=== PATIENT | female | born 1980 | race Caucasian/White ===

== ENCOUNTER 2025-01-03 19:13 | Emergency (ER) | payer BC, SELFPAY ==
[2025-01-03 19:21] VITALS: BP 107/58; PULSE 81; RESP 16; TEMP 36.6; O2SAT 99; BMI 26.3
--- OUTSIDE RECORDS SUMMARY | 2025-01-03 19:34 | XMS_ITS | Clinical Summary ---
Author Organization [facility] Address [address] [place] [address] Care Team Providers Care Dental Laboratory Technician Name Role Phone Unavailable Primary Care Provider Unavailabl e Allergies Active Allergy Reactions Criticality Noted Date Comments Penicillins Swelling,Rash High 05/26/2021 Active Problems Problem Noted Date Diagnosed Date Sebaceous cyst 05/26/2021 Family History Medical History Relation Name Comments Liver cancer Maternal Grandmother Fibromyalgia Mother Liver cancer Mother Relation Name Status Comments Maternal Grandmother Mother Social History Tobacco Use Types Packs/Day Years Used Date Smoking Tobacco: Every Day Smokeless Tobacco: Never Alcohol Use Standard Drinks/Week Comments Yes 0 (1 standard drink = 0.6 oz pur e alcohol) occasionally Comments Unknown Sex and Gender Information Value Date Recorded Sex Assigned at Not on file Legal Sex Female 6:18 PM EDT Gender Identity Not on file Sexual Orientation Not on file Last Filed Vital Signs Vital Sign Reading Time Taken Comments Blood Pressure 93/59 05/26/2021 1:53 PM EST Pulse 95 05/26/2021 1:53 PM EST Temperature 36.8 C (98.2 F) 05/26/2021 1:53 PM EST Respiratory Rate 16 06/25/2017 3:23 PM EST Oxygen Saturation - - Inhaled Oxygen Concentration - - Weight 68.3 kg (150 lb 9.6 oz) 05/26/2021 1:53 P M EST Height 167.6 cm (5' 6 ) 05/26/2021 1:53 PM EST Body Mass Index 24.31 05/26/2021 1:53 PM EST Plan of Treatment Health Maintenance Due Date Last Done Comments [facility]-Depression Screening 1982 [facility]-/Child/Adol SDOH Screenings 1982 [facility]Y-Varicella Vaccines (1 of 2 - 13+ 2-dose series) 12/04/1995 UKY- SDOH Screenings 2000 UKY-Adult SDOH Screenings 2000 UKY-DTaP,Tdap,and Td Vaccines (1 - Tdap) 2001 UKY-Hepatitis B Vaccines (1 of 3 - 19+ 3-dose series) 2001 UKY-Pap Smear 12/04/2003 HPV Vaccines (1 - 3-dose SCDM series) 2009 [facility]Y-Cervical Cancer Screening 2012 UKY-HPV/Cotest 2012 [id number]-OKLTA-01 Vaccine (3 - season) 2024 12/21/2020, 11/04/2020 UKY-Influenza Vaccine (#1) 12/29/202401/22, 02/15/2016, 03/02/2015 UKY-Zoster Vaccines (1 of 2) 2032 UKY-HIB Vaccines Aged Out No longer e ligible based on patient's age to complete this topic UKY-Hepatitis A Vaccines Aged Out No longer eligible based on patient's age to complete this topic UKY-IPV Vaccines Aged Out No longer e ligible based on patient's age to complete this topic UKY-Pneumococcal Vaccine: Pediatrics (0 to 5 Years) and At-Risk Patients (6 to 49 Years) Aged Out No longer eligible b ased on patient's age to complete this topic UKY-Rotavirus Vaccines Aged Out No lo nger eligible based on patient's age to complete this topic Insurance [facility] PASSPORT MEDICAID [place]
--- OUTSIDE RECORDS SUMMARY | 2025-01-03 19:34 | XMS_ITS | Clinical Summary ---
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 06/13/2019 Active Probiotic Product (ALIGN) 4 MG capsule Take by mouth. Active Multiple Vitamin (MULTIVITAMIN) capsule Take 1 capsule by mouth 1 (one) time each day. Active calcium carbonate-vitam in D (OSCAL-500) 500-200 MG-UNIT per tablet Take 1 tablet by mouth 1 (one) time each day. Active peppermint oil liquid if needed. Active busPIRone (BUSPAR) 15 MG tablet 05/13/2020 Active Vraylar 6 MG capsule Take 1 capsule by mouth 1 (one) time each day. 06/11/2021 Active lamoTRIgine ER 300 MG tablet sustained-relea se 24 hour Take 1 tablet by mouth 1 (one) time each day. 06/22/2021 Active oxaprozin (DAYPRO) 600 MG tablet TAKE 2 TABLETS BY MOUTH ONCE DAILY DIRECTED 06/23/2021 Active hydrOXYzine (VISTARIL) 50 MG capsule TAKE 1 CAPSULE BY MOUTH UP TO 4 TIMES DAILY NEEDED 06/23/2021 Active etodolac (LODINE) 400 MG tablet Take 400 mg by mouth 2 (two) times a day with meals. 06/19/2021 Active Active Problems No known active problems Social History Tobacco Use Types Packs/Day Years Used Date Smoking Tobacco: Every Day Cigarettes Smokeless Tobacco: Never Intimate Partner Violence Answer Date R ecorded Insults You Not on file 07/05/2021 Threatens You Not on file 07/05/2021 Screams at You Not on file 07/05/2021 Physically Hurt Not on file 07/05/2021 Intimate Partner Violence Score Not on file 07/05/2021 Stress Answer Date Recorded Stress in your Life Not on file 03/05/2024 Dealing with Stress 3 03/05/2024 Comments Unknown Sex and Gender Information Value Date Recorded Sex Assigned at Not on file 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 [employer] Gender Identity Not on file Sexual Orientation Not on file Last Filed Vital Signs Vital Sign Reading Time Taken Comments Blood Pressure 128/76 07/04/2021 7:00 PM EST Pulse 84 07/04/2021 7:00 PM EST Temperature 36.9 C (98.5 F) 2019 10:08 PM EDT Respiratory Rate 20 07/04/2021 7:00 PM EST Oxygen Saturation 98% 07/04/2021 7:00 PM EST Inhaled Oxygen Concentration - - Weight - - Height - - Body Mass Index - - Plan of Treatment Health Maintenance Due Date Last Done Comments Cervical Cancer Screening Combo 1982 Dental Cleaning/Exam 1982 HIV Screening 1982 HPV / Cotest 1982 Hepatitis C Screening 1982 Pap Testing 1982 Asthma Spirometry 12/04/1987 HPV Immunization (1 - 2-dose series) 1993 Annual Preventive Exam 2000 Hep B Infection Screening - Triple Screen 2000 Hepatitis B Immunization (1 of 3 - 19+ 3-dose series) 2001 Pneumococcal: Ped (0 to 5 Yr s) and At-Risk Member (6 to 64 Yrs) (1 of 2 - PCV) 2001 Tetanus Diphtheria and Pertu ssis Immunization (1 - Tdap) 2001 Breast Cancer Screening 2012 Covid-19 Immunization (1 - 2 024-25 season) 2024 Influenza Immunization (#1) 2024 HIB Immunization Aged Out No longer e ligible based on patient's age to complete this topic Hepatitis A Immunization Aged Out No longer eligible based on patient's age to complete this topic Polio Immunization Aged Out No longer eligible based on patient's age to complete this topic Varicella Immunization Aged Out No lo nger eligible based on patient's age to complete this topic
--- NOTE | 2025-01-03 19:44 | XR_ITS ---
PROCEDURE INFORMATION: Exam: XR Left Wrist Exam date and time: 01/03/2025 7:38 PM Age: 44 years old Clinical indication: Pain; Swelling; Wrist; Bilateral; Additional info: Wrist pain TECHNIQUE: Imaging protocol: Radiologic exam of the left wrist. Views: 3 or more views. COMPARISON: No relevant prior studies available. FINDINGS: Bones/joints: Normal. No acute fracture identified. Soft tissues: Normal. IMPRESSION: No acute findings.
--- NOTE | 2025-01-03 19:57 | HMH.EDGENADL ---
Discharge Plan Disposition Patient Disposition: Home, Self-Care Referrals Follow up/Referrals: Dashawn Silver MD [Primary Care Provider, Medical] - See instructions Activity Restrictions/Add. Instructions Additional Instructions/Restrictions: Ice, elevate, use ibuprofen and Tylenol for pain and swelling. Clinical Impressions Clinical Impression: Left wrist sprain Instructions Patient Instructions: DI for Wrist Sprain, DI for Acute Pain -- Adult Print Language Print Language: Urdu Discharge ED Provider: Leonel Montague JR General Adult HPI <Apurva Madera (ED), COMPUTERIZED MILL MILL RECORDER - Last Filed: 01/03/25 21:57> General Chief complaint: PAIN Stated complaint: AO 9-6 left wrist painful and swollen Time Seen by Provider: 01/03/25 19:44 Mode of Arrival: Ambulatory Source of Information: Patient Description of Symptoms (Recalled from ER Triage Doc. by RN): Pt presents to ED for L wrist injury after a fall. Pt states she fell going up the stairs on a patio. Pt states this happened approx minutes ago. Pt has a knot on L wrist that she states was not there prior. Pt is A&O*4 and rates pain 5/10. History of Present Illness HPI narrative: 44-year-old female presents to the ED today for complaint of a fall on her porch. She was going up the stairs and fell back. She has a knot on her left wrist that is painful. Patient denies any loss of consciousness. She did not hit her head. She denies pain anywhere other than her left wrist. PFSH <Apurva Madera (ED), COMPUTERIZED MILL MILL RECORDER - Last Filed: 01/03/25 21:57> [facility]LY [facility] Disclaimer: The information contained in this section may have been updated after the patient was seen, as this information can be updated by other users. Social History (Updated 01/03/25 @ 21:57 by Apurva Madera (ED), COMPUTERIZED MILL MILL RECORDER) Smoking Status: Unknown if ever smoked alcohol intake: former current occupational status: other Travel in the last 8 weeks?: None Have you lived/traveled outside US in past 30 days?: No Contact w/someone who lives/traveled outside US past 30 days?: No Exposure to someone with infectious disease in past 14 days?: No Do you have a fever (greater than 100.4 F or 38 C)?: No Have you tested positive for COVID-19?: No Exposed to someone with COVID-19 in past 14 days?: No Do you have a sore throat?: No Do you have a cough?: No Do you have any weakness?: No Do you have any diarrhea?: No Are you experiencing any unusual bleeding?: No Do you have any muscle aches/pain?: No Do you have any abdominal pain?: No Are you experiencing loss of taste or smell?: No <Apurva Madera (ED), COMPUTERIZED MILL MILL RECORDER - Last Filed: 01/03/25 21:57> ROS Obtained: Yes Systems reviewed as appropriate & no additional complaints except as documented Constitutional Constitutional: Reports as per HPI Physical Exam <Apurva Madera (ED), COMPUTERIZED MILL MILL RECORDER - Last Filed: 01/03/25 21:57> General General appearance: alert and in no apparent distress Head Head exam: normocephalic Eye Eye exam: Present PERRL and EOMI ENT ENT exam: Present normal oropharynx and mucous membranes moist Neck Neck exam: Present full ROM and trachea midline Respiratory Respiratory exam: Present normal lung sounds bilaterally Cardiovascular Cardiovascular exam: Present regular rate, normal rhythm, normal heart sounds, +S1 and +S2 Extremities Exam Extremities exam: Present tenderness, normal capillary refill and edema Neurological Exam Neurological exam: Present alert and oriented X3 Skin Skin exam: Present warm, dry and intact Medical Decision Making <Apurva Madera (ED), COMPUTERIZED MILL MILL RECORDER - Last Filed: 01/03/25 21:57> Medical Records Screening: Per USPSTF and CDC recommendations, given the prevalence of disease in our region, it is our hospital?s policy to screen for HIV and viral Hepatitis for all patients aged 18 and over and those with ongoing risk factors. Mehran Inquiry Pt receiving controlled substance: No Mehran was queried for this patient: No Vital Signs: 01/03/25 19:21 01/03/25 22:04 Temperature 97.9 F 98.3 F Temperature Source Oral Oral Pulse Rate 70 Pulse Rate [Left] 81 Respiratory Rate 16 18 Blood Pressure 111/72 Blood Pressure [Right Arm] 107/58 L Blood Pressure Mean [Right Arm] 74 02 Sat by Pulse Oximetry 99 Oxygen Delivery Method Room Air Room Air Orders (Tests/Meds): ORDERS Category Date Time Status Wrist XR left minimum 3 views [XR wrist LT min 3V] Stat Exams 01/03/25 19:44 Completed Medical Decision Narrative: patient is a 44-year-old female presenting to the emergency department for evaluation of left wrist pain after a fall. Patient is hemodynamically stable and nontoxic-appearing upon arrival, afebrile. Differential diagnosis includes fracture versus sprain or strain. Workup will be conducted with specific imaging. X-ray showed no acute finding. Patient will do Arnold wrap, Tylenol and ibuprofen for pain. She will follow-up with PCP. Patient safe for discharge home. <Leonel Montague JR, DO - Last Filed: 01/04/25 00:23> Vital Signs: 01/03/25 19:21 01/03/25 22:04 Temperature 97.9 F 98.3 F Temperature Source Oral Oral Pulse Rate 70 Pulse Rate [Left] 81 Respiratory Rate 16 18 Blood Pressure 111/72 Blood Pressure [Right Arm] 107/58 L Blood Pressure Mean [Right Arm] 74 02 Sat by Pulse Oximetry 99 Oxygen Delivery Method Room Air Room Air Orders (Tests/Meds): ORDERS Category Date Time Status Wrist XR left minimum 3 views [XR wrist LT min 3V] Stat Exams 01/03/25 19:44 Completed Medical Decision Narrative: patient is a 44-year-old female presenting to the emergency department for evaluation of left wrist pain after a fall. Patient is hemodynamically stable and nontoxic-appearing upon arrival, afebrile. Differential diagnosis includes fracture versus sprain or strain. Workup will be conducted with specific imaging. X-ray showed no acute finding. Patient will do Arnold wrap, Tylenol and ibuprofen for pain. She will follow-up with PCP. Patient safe for discharge home. I was consulted by the GEORGETTE, and we discussed the complexity of problems being addressed. I approve the treatment and management plan for this patient's care in the Emergency Department, thus performing a substantial portion of the medical decision making Critical Care <Apurva Madera (TEZ), COMPUTERIZED MILL MILL RECORDER - Last Filed: 01/03/25 21:57> Critical Care Time Critical Care Time: No
[2025-01-03 22:04] VITALS: BP 111/72; PULSE 70; RESP 18; TEMP 36.8; O2SAT 96
== END 2025-01-03 22:06 | disposition home or self-care (01) ==
PROVIDERS: Emergency Provider Student in an Organized Health Care Education/Training Program; PCP Family Medicine
DX: S63.502A Unspecified sprain of left wrist, initial encounter (principal)
CPT/HCPCS: 73110; 99282; 99283

== ENCOUNTER 2025-01-27 11:01 | Outpatient (CLI) | payer BC, SELFPAY ==
--- NOTE | 2025-01-27 11:08 | XR_ITS ---
FINAL REPORT CLINICAL HISTORY: low back pain NO SUGERY NO PRIOR COMPARISON: None FINDINGS: 3 views of the lumbar spine were obtained. There is no acute fracture. There is no malalignment. The vertebrae are normal in height. The disc spaces are preserved. IMPRESSION: No acute process. Reviewed, Interpreted and Dictated by Mukund Zapata MD Transcribed by Livia Heaton Authenticated and [facility]
--- OUTSIDE RECORDS SUMMARY | 2025-01-27 11:09 | XMS_ITS | Clinical Summary ---
Author Organization [facility] Address [address] [place] [address] Care Team Providers Care Jewelry Casting Model Maker Name Role Phone Unavailable Primary Care Provider [...] 2009 [facility]-Cervical Cancer Screening 2012 [facility]Y-HPV/Cotest 2012 [id number] Vaccine (3 - season) 2024 12/21/2020, 11/04/2020 [...] patient's age to complete this topic Insurance [facility], [facility] PASSPORT MEDICAID [place]
--- OUTSIDE RECORDS SUMMARY | 2025-01-27 11:09 | XMS_ITS | Clinical Summary ---
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
== END 2025-01-27 23:59 | disposition home or self-care (01) ==
LOC: RAD 11:03
PROVIDERS: PCP Family Medicine; Visit Provider Student in an Organized Health Care Education/Training Program
DX: M54.50 Low back pain, unspecified (principal)
CPT/HCPCS: 72100

== ENCOUNTER 2025-02-02 14:08 | Emergency (ER) | payer BC, SELFPAY ==
[2025-02-02 14:13] VITALS: BP 131/93; PULSE 94; RESP 15; TEMP 36.4; O2SAT 100; BMI 26.3
[2025-02-02 14:27] LABS: Coronavirus 19, PCR Not Detected (NotDetected); Influenza A, PCR Not Detected (NotDetected); Influenza B, PCR Not Detected (NotDetected)
--- OUTSIDE RECORDS SUMMARY | 2025-02-02 14:34 | XMS_ITS | Clinical Summary ---
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
--- OUTSIDE RECORDS SUMMARY | 2025-02-02 14:34 | XMS_ITS | Clinical Summary ---
Author Organization [facility] Address [address] [place] [address] Care Team Providers Care Lathe Machinist Name Role Phone Unavailable Primary Care Provider [...] 2009 [facility]Y-Cervical Cancer Screening 2012 [facility]Y-HPV/Cotest 2012 [id number] Vaccine (3 - season) 2024 12/21/2020, 11/04/2020 [...] patient's age to complete this topic Insurance [facility] PASSPORT MEDICAID [place]
[2025-02-02 14:39] VITALS: O2SAT 100
--- NOTE | 2025-02-02 14:47 | XR_ITS ---
FINAL REPORT TECHNIQUE: Single view chest CLINICAL HISTORY: short of breath FINDINGS: A single view of the chest was obtained. The heart and mediastinum are within normal limits. The lungs are clear. There is no pneumothorax. IMPRESSION: No acute cardiopulmonary process. Reviewed, Interpreted and Dictated by Stephanie Melchor MD Transcribed by Cara Gutierrez Authenticated and [facility]
--- NOTE | 2025-02-02 14:50 | ED_ITS ---
<Statement entered by Bruce Davies DO - 02/03/25 07:33> I was consulted by the GEORGETTE, and we discussed the complexity of problems being addressed. I approved the treatment and management plan for this patient's care in the emergency department, thus performing a substantive portion of the medical decision making. Bruce Davies DO <Statement entered by Bart Calderón MD - 02/02/25 17:38> I was consulted by the GEORGETTE, and we discussed the complexity of the problems being addressed. I approve the treatment and management plan for this patient's care in the emergency department, thus performing a substantive portion of the medical decision making. Bart Calderón MD Discharge Plan Disposition Chief Complaint: Weakness Prescriptions Prescriptions: No Action cyclobenzaprine 5 mg tablet 5 mg PO TID PRN (Reason: muscle spasm) Qty: 14 0RF methylprednisolone 4 mg tablets,dose pack See Rx Instructions PO PER PKG DIR Qty: 21 0RF Rx Instructions: PO PER PKG DIR Referrals Follow up/Referrals: Dashawn Silver MD [Primary Care Provider, Medical] - See instructions Print Language Print Language: Arabic Discharge ED Provider: Bruce Davies General Adult HPI <Apurva Madera (ED), GAUGE MAKER APPRENTICE - Last Filed: 02/02/25 17:31> General Chief complaint: Weakness Stated complaint: Body Aches & Dizziness Time Seen by Provider: 02/02/25 14:32 Mode of Arrival: Ambulatory Source of Information: Patient Description of Symptoms (Recalled from ER Triage Doc. by RN): tracy presents to the ED for dizziness, having no energy and body aches. itzel stated this all started this morning. History of Present Illness HPI narrative: 44-year-old female presents to the ED today for body aches, low energy, no appetite, flu like symptoms, chest pain and no appetite. Patient says she has been sweating and having chills but does not know if she has a fever or not. She says she is going through a divorce and just is depressed. She has not had her Seroquel or her Zoloft for the last 2 days. She has no other symptoms at this time. Related Data Previous Rx's ?Medication ?Instructions ?Recorded cyclobenzaprine 5 mg tablet 5 mg PO TID PRN muscle spa sm #14 01/22/25 tabs methylprednisolone 4 mg tablets in See Rx Instructions PO PER PKG DIR 01/22/25 a dose pack #21 tabs Allergies Allergy/AdvReac Type Severity Reaction Status Date / Time Penicillins Allergy Severe Hives Verified 01/22/25 16:15 PFSH <Apurva Madera (ED), GAUGE MAKER APPRENTICE - Last Filed: 02/02/25 17:31> PFS Disclaimer: The information contained in this section may have been updated after the patient was seen, as this information can be updated by other users. Social History Smoking Status: Current every day smoker alcohol intake: former current occupational status: other Travel in the last 8 weeks?: None Have you lived/traveled outside US in past 30 days?: No Contact w/someone who lives/traveled outside US past 30 days?: No Exposure to someone with infectious disease in past 14 days?: No Do you have a fever (greater than 100.4 F or 38 C)?: No Have you tested positive for COVID-19?: No Exposed to someone with COVID-19 in past 14 days?: No Do you have a sore throat?: No Do you have a cough?: No Do you have any weakness?: No Do you have any diarrhea?: No Are you experiencing any unusual bleeding?: No Do you have any muscle aches/pain?: Yes Do you have any abdominal pain?: No Are you experiencing loss of taste or smell?: No <Apurva Madera (ED), GAUGE MAKER APPRENTICE - Last Filed: 02/02/25 17:31> ROS Obtained: Yes Systems reviewed as appropriate & no additional complaints except as documented Constitutional Constitutional: Reports as per HPI Physical Exam <Apurva Madera (ED), GAUGE MAKER APPRENTICE - Last Filed: 02/02/25 17:31> General General appearance: alert and anxious Head Head exam: normocephalic Eye Eye exam: Present PERRL and EOMI ENT ENT exam: Present normal oropharynx and mucous membranes moist Neck Neck exam: Present full ROM and trachea midline Respiratory Respiratory exam: Present normal lung sounds bilaterally Cardiovascular Cardiovascular exam: Present normal rhythm, normal heart sounds, +S1 and +S2 Extremities Exam Extremities exam: Present full ROM and normal capillary refill Neurological Exam Neurological exam: Present alert, oriented X3 and normal gait Skin Skin exam: Present warm, dry and intact Medical Decision Making <Apurva Madera (ED), GAUGE MAKER APPRENTICE - Last Filed: 02/02/25 17:31> Medical Records Screening: Per USPSTF and CDC recommendations, given the prevalence of disease in our region, it is our hospital?s policy to screen for HIV and viral Hepatitis for all patients aged 18 and over and those with ongoing risk factors. Mehran Inquiry Pt receiving controlled substance: No Mehran was queried for this patient: No Vital Signs: 02/02/25 14:13 02/02/25 14:39 Temperature 97.5 F L Temperature Source Oral Pulse Rate [Right Radial] 94 H Respiratory Rate 15 Blood Pressure [Right Arm] 131/93 H Blood Pressure Mean [Right Arm] 105 Blood Pressure Source [Right Arm] Automatic Cuff Blood Pressure Position [Right Arm] Sitting 02 Sat by Pulse Oximetry 100 100 Oxygen Delivery Method Room Air Room Air Lab Data Lab Results 02/02/25 14:20: SARS-CoV-2 (PCR) Not detected, Influenza A Untype (PCR) Not detected, Influenza Type B (PCR) Not detected 02/02/25 14:57: WBC 4.6 L, RBC 4.31, Hgb 11.8 L, Hct 34.2 L, MCV 79.4 L, MCH 27.4, MCHC 34.5, RDW 14.2, Plt Count 240, MPV 9.3, Neut % (Auto) 64.5, Lymph % (Auto) 26.3, Karnes % (Auto) 6.6, Eos % (Auto) 1.5, Baso % (Auto) 0.7, Neut # (Auto) 3.0, Lymph # (Auto) 1.2, Karnes # (Auto) 0.3, Eos # (Auto) 0.1, Baso # (Auto) 0.0, Sodium 137, Potassium 3.9, Chloride 105, Carbon Dioxide 23, Anion Gap 12.9, BUN 11, Creatinine 0.90, Estimated Creat Clear 95, Estimated GFR 69, Est GFR ( Amer) 83, Glucose 90, Calcium 8.7, Magnesium 1.9, Total Bilirubin 0.6, AST 40 H, ALT 30, Alkaline Phosphatase 88, Troponin I < 0.01, Total Protein 6.9, Albumin 4.0, Globulin 2.9, Albumin/Globulin Ratio 1.4, Lipase 43 02/02/25 14:57 02/02/25 14:57 Orders (Tests/Meds): ED MEDICATIONS Generic Name Dose Route Start Last Admin Trade Name Freq PRN Reason Stop Dose Admin Sodium Chloride 8 ml 02/02/25 14:47 Sodium Chloride 0.9% 10ml Vial IV 03/04/25 14:46 NEEDED PRN dilute pepcid Discontinued Medications Generic Name Dose Route Start Last Admin Trade Name Freq PRN Reason Stop Dose Admin Famotidine 20 mg 02/02/25 14:47 02/02/25 15:11 Famotidine 20mg/2ml Vial IV 02/02/25 14:48 20 mg ONCE ONE Administration Sodium Chloride 1,000 mls @ 999 mls/hr 02/02/25 14:47 02/02/25 16:25 Sod Chlor 0.9% 1000ml Bag IV 02/02/25 15:47 Infused .Q1H1M ONE Infusion ORDERS Category Date Time Status Chest XR -- portable [XR chest portable] Stat Exams 02/02/25 14:47 Completed CBC [Complete Blood Count Auto Diff] Stat Lab 02/02/25 14:57 Completed Comprehensive Metabolic Panel Stat Lab 02/02/25 14:57 Completed Lipase Stat Lab 02/02/25 14:57 Completed Magnesium Stat Lab 02/02/25 14:57 Completed Rapid PCR Covid and Flu A/B Stat Lab 02/02/25 14:20 Completed Trop I [Troponin I] Stat Lab 02/02/25 14:57 Completed Troponin I Q3H Lab 02/02/25 18:00 Ordered Troponin I Q3H Lab 02/02/25 21:00 Ordered Medical Decision Narrative: patient is a 44-year-old female presenting to the emergency department for evaluation of bodyaches, flulike symptoms, no appetite, chest pain that started this morning. Patient is hemodynamically stable and nontoxic-appearing upon arrival, afebrile. Differential diagnosis includes flu, COVID, symptoms from not taking her medicine, depression among others. Workup will be conducted with hematologic labs, specific imaging, provocative tests. Initial inventions include crystalloid bolus, analgesics. Initial workup reviewed by me hematologic labs are remarkable for white count 4.6, flu COVID-negative, other labs nonactionable at this time. Imaging showed nothing acute. I encouraged patient to take her medication that she has not been taking her Zoloft and her Seroquel. I believe that this is related. Patient to take a couple days off work, take her medicine and rest for couple days. Patient safe for discharge home <Bart Calderón MD - Last Filed: 02/02/25 15:48> Vital Signs: 02/02/25 14:13 02/02/25 14:39 Temperature 97.5 F L Temperature Source Oral Pulse Rate [Right Radial] 94 H Respiratory Rate 15 Blood Pressure [Right Arm] 131/93 H Blood Pressure Mean [Right Arm] 105 Blood Pressure Source [Right Arm] Automatic Cuff Blood Pressure Position [Right Arm] Sitting 02 Sat by Pulse Oximetry 100 100 Oxygen Delivery Method Room Air Room Air Lab Data Lab Results 02/02/25 14:20: SARS-CoV-2 (PCR) Not detected, Influenza A Untype (PCR) Not detected, Influenza Type B (PCR) Not detected 02/02/25 14:57: WBC 4.6 L, RBC 4.31, Hgb 11.8 L, Hct 34.2 L, MCV 79.4 L, MCH 27.4, MCHC 34.5, RDW 14.2, Plt Count 240, MPV 9.3, Neut % (Auto) 64.5, Lymph % (Auto) 26.3, Karnes % (Auto) 6.6, Eos % (Auto) 1.5, Baso % (Auto) 0.7, Neut # (Auto) 3.0, Lymph # (Auto) 1.2, Karnes # (Auto) 0.3, Eos # (Auto) 0.1, Baso # (Auto) 0.0, Sodium 137, Potassium 3.9, Chloride 105, Carbon Dioxide 23, Anion Gap 12.9, BUN 11, Creatinine 0.90, Estimated Creat Clear 95, Estimated GFR 69, Est GFR ( Amer) 83, Glucose 90, Calcium 8.7, Magnesium 1.9, Total Bilirubin 0.6, AST 40 H, ALT 30, Alkaline Phosphatase 88, Troponin I < 0.01, Total Protein 6.9, Albumin 4.0, Globulin 2.9, Albumin/Globulin Ratio 1.4, Lipase 43 Orders (Tests/Meds): ED MEDICATIONS Generic Name Dose Route Start Last Admin Trade Name Freq PRN Reason Stop Dose Admin Sodium Chloride 8 ml 02/02/25 14:47 Sodium Chloride 0.9% 10ml Vial IV 03/04/25 14:46 NEEDED PRN dilute pepcid Discontinued Medications Generic Name Dose Route Start Last Admin Trade Name Roshan PRN Reason Stop Dose Admin Famotidine 20 mg 02/02/25 14:47 02/02/25 15:11 Famotidine 20mg/2ml Vial IV 02/02/25 14:48 20 mg ONCE ONE Administration Sodium Chloride 1,000 mls @ 999 mls/hr 02/02/25 14:47 02/02/25 16:25 Sod Chlor 0.9% 1000ml Bag IV 02/02/25 15:47 Infused .Q1H1M ONE Infusion ORDERS Category Date Time Status Chest XR -- portable [XR chest portable] Stat Exams 02/02/25 14:47 Completed CBC [Complete Blood Count Auto Diff] Stat Lab 02/02/25 14:57 Completed Comprehensive Metabolic Panel Stat Lab 02/02/25 14:57 Completed Lipase Stat Lab 02/02/25 14:57 Completed Magnesium Stat Lab 02/02/25 14:57 Completed Rapid PCR Covid and Flu A/B Stat Lab 02/02/25 14:20 Completed Trop I [Troponin I] Stat Lab 02/02/25 14:57 Completed Troponin I Q3H Lab 02/02/25 18:00 Ordered Troponin I Q3H Lab 02/02/25 21:00 Ordered ECG Data Tracing #1: I reviewed this ECG and interpreted as documented below: NSR. No ST elevation or depression. QTc 424 Critical Care <Apurva Madera (ED), GAUGE MAKER APPRENTICE - Last Filed: 02/02/25 17:31> Critical Care Time Critical Care Time: No
[2025-02-02 15:09] LABS: Hematocrit 34.2 % (37.0-47.0); Hemoglobin 11.8 g/dL (12.2-16.2); Immature Granulocytes % 0.4 %; Mean Corpuscular HGB Conc 34.5 g/dL (31.8-35.4); Mean Corpuscular Hemoglobin 27.4 pg (27.0-31.2); Mean Corpuscular Volume 79.4 fl (81-99); Nucleated Red Blood Cells % 0 %; Platelet Count 240 K/mm3 (142-424); Red Blood Count 4.31 M/mm3 (4.20-5.40); Red Cell Distribution Width-SD 41.1 fL; White Blood Count 4.6 K/mm3 (4.8-10.8)
[2025-02-02] MEDS: 0.9 % SODIUM CHLORIDE 1000ML 1,000 ML 999 ML IV (15:11)
[2025-02-02] MEDS: FAMOTIDINE 20MG/2ML VIAL 20 MG IV (15:11)
[2025-02-02 15:15] LABS: Alanine Aminotransferase 30 U/L (12-78); Albumin Level 4.0 g/dl (3.5-5.0); Albumin/Globulin Ratio 1.4 (1.1-1.8); Alkaline Phosphatase 88 U/L (38-126); Anion Gap 12.9 mEq/L (5-15); Aspartate Amino Transferase 40 U/L (14-36); Bilirubin,Total 0.6 mg/dl (0.2-1.3); Blood Urea Nitrogen 11 mg/dl (7-17); Calcium 8.7 mg/dl (8.4-10.2); Carbon Dioxide 23 mmol/L (22.0-30.0); Chloride 105 mmol/L (98-107); Creatinine Clearance Estimated 95 mL/min (50-200); Creatinine,Serum 0.90 mg/dl (0.52-1.04); Estimated Glomerular Filt Rate 69 ml/min (>60); GFR (African American) 83 ML/MIN (>60); Globulin 2.9 g/dL (1.3-3.2); Glucose 90 mg/dl (74-100); Lipase 43 U/L (23-300); Magnesium 1.9 mg/dl (1.6-2.3); Potassium 3.9 mmoL/L (3.5-5.1); Sodium 137 mmol/L (136-145); Total Protein,Serum 6.9 g/dl (6.3-8.2)
--- NOTE | 2025-02-02 15:19 | ECG_ITS ---
APPROVED REPORT Exam: Resting ECG HR:72 bpm ECG Measurements Heart Rate 72 AXES OK 141 P 53 QRSd 89 QRS 28 QT 399 T 48 QTc 424 Conclusion SINUS RHYTHM LOW QRS VOLTAGE IN PRECORDIAL LEADS [QRS DEFLECTION < 1.0 mV IN CHEST LEADS] POSSIBLE RIGHT VENTRICULAR CONDUCTION DELAY [RSR (QR) IN V1/V2] BORDERLINE ECG UNCONFIRMED REPORT Electronically signed by : MASON PEREZ, 02/03/2025 04:44:01
[2025-02-02 15:31] LABS: Troponin I < 0.01 ng/ml (0.00-0.034)
[2025-02-02 17:38] VITALS: BP 123/76; PULSE 77; RESP 16; TEMP 36.7; O2SAT 99
== END 2025-02-02 17:39 | disposition home or self-care (01) ==
PROVIDERS: Nurse Practitioner; Emergency Provider Student in an Organized Health Care Education/Training Program; PCP Family Medicine
DX: R42 Dizziness and giddiness (principal); R53.81 Other malaise; F19.939 Other psychoactive substance use, unspecified with withdrawal, unspecified
CPT/HCPCS: 71045; 80053; 83690; 83735; 84484; 85025; 87636; 93005; 96361; 96374; 99284; J1308; J7030

== ENCOUNTER 2025-04-16 11:11 | Outpatient (CLI) | payer BC, SELFPAY ==
--- NOTE | 2025-04-16 11:16 | XR_ITS ---
FINAL REPORT CLINICAL HISTORY: T SPINE AND L SPINE...LOW BACK PAIN FINDINGS: THORACIC SPINE Two views were obtained. There is no acute fracture. The disc spaces are well-preserved. There is mild scoliosis convex to the right. There is a densely calcified subcarinal lymph node. There is no malalignment. IMPRESSION: No acute process. LUMBAR SPINE Three views were obtained. There is no acute fracture. The disc spaces are well-preserved. There is facet sclerosis in the lower lumbar spine. There is no malalignment. IMPRESSION: No acute process. Reviewed, Interpreted and Dictated by Mukund Zapata MD Transcribed by Anayeli Lassiter Authenticated and [facility]
--- OUTSIDE RECORDS SUMMARY | 2025-04-16 12:22 | XMS_ITS | Clinical Summary ---
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 Gender Identity Not on file Sexual Orientation [...] Dental Cleaning/Exam 1982 HIV Screening 1982 HPV only / HPV + Pap 1982 Hepatitis C Screening 1982 Pap only testing 1982 Asthma Spirometry 12/04/1987 HPV Immunization (1 - 2-dose series) 1993 Annual Preventive Exam 2000 Hep B Infection Screening - Triple Screen 2000 Hepatitis B Immunization (1 of 3 - 19+ 3-dose series) 2001 Pneumococcal Immunization (1 of 2 - PCV) 2001 Tetanus Diphtheria and Pertu ssis Immunization (1 - Tdap) 2001 Breast Cancer Screening 2012 Covid-19 Immunization (1 - 2 025-26 season) 2024 Influenza Immunization (#1) 2024 HIB [...]
--- OUTSIDE RECORDS SUMMARY | 2025-04-16 12:22 | XMS_ITS | Clinical Summary ---
Author Organization [facility] Address [address] [place] [address] Care Team Providers Care Mutuel Clerk Name Role Phone Unavailable Primary Care Provider [...] 19+ 3-dose series) 2001 [facility]-Pap Smear 12/04/2003 [facility]-Cervical Cancer Screening 2012 [facility]-HPV/Cotest 2012 [id number] Vaccine (3 - 2024- season) 2024 12/21/2020, 11/04/2020 [facility]-Influenza Vaccine (#1) 12/29/202401/22, 02/15/2016, 03/02/2015 [facility]-Zoster Vaccines (1 of 2) 2032 HPV Vaccines (No Doses Required) Completed [facility]-HIB Vaccines Aged Out No longer e [...] patient's age to complete this topic Insurance AN[employer] MEDICAID [id number]
== END 2025-04-16 23:59 | disposition home or self-care (01) ==
LOC: RAD 11:13
PROVIDERS: PCP Nurse Practitioner Family; Visit Provider Nurse Practitioner Family
DX: R76.89 Other specified abnormal immunological findings in serum; M41.9 Scoliosis, unspecified
CPT/HCPCS: 72084

== ENCOUNTER 2025-04-28 08:26 | Outpatient (CLI) | payer BC, SELFPAY ==
--- NOTE | 2025-04-28 08:27 | US_ITS ---
PROCEDURE: US TRANSVAGINAL CLINICAL INDICATION: IRREGULAR CYCLES COMPARISON: No exams were available for comparison FINDINGS: Transvaginal sonographic images of the pelvis were obtained. UTERUS: 6.1cm x 3.9 cmx 3.1cm anteverted then turned retroverted with a combined endometrial thickness of 3.9mm. There is a 7 mm nabothian cyst in the cervix. LEFT OVARY: 3.7 cmx2.5cmx2.0cm with a volume of 9.6ml. There is a follicle with debris in the left ovary measuring 1.76 cm x 1.92 cm 2.01 cm. Likely a resolving hemorrhagic cyst. RIGHT OVARY: 2.5cmx 1.9 cmx1.5cm with a volume of 3.6ml. There is a 1.0 cm follicle in the right ovary there appears to be a corpus luteum. Both ovaries are seen and appear normal. Doppler flow to both ovaries are seen. There is no fluid in the cul-de-sac. IMPRESSION: 1. Initially anteverted then retroverted uterus normal in shape and size. The endometrium is thin measuring 3.9 mm. 2. Both ovaries are seen and appear normal. The left ovary contains a debris-filled follicle measuring 2.0 cm. Likely a small resolving hemorrhagic cyst. The right ovary contains what appears to be a corpus luteum. 3. No fluid in the cul-de-sac. Dictated by: Carlos Guidry MD 04/28/2025 11:51 Carlos Guidry MD in OV 04/28/2025 11:51
--- OUTSIDE RECORDS SUMMARY | 2025-04-28 08:28 | XMS_ITS | Clinical Summary ---
Author Organization [facility] Address [address] [place] [address] Care Team Providers Care Sole Seamer Name Role Phone Unavailable Primary Care Provider [...] 12/04/2003 [facility]-Cervical Cancer Screening 2012 [facility]-HPV/Cotest 2012 [id number] Vaccine (3 - 2024- season) 2024 12/21/2020, [...] complete this topic Insurance [employer] MEDICAID [place]
--- OUTSIDE RECORDS SUMMARY | 2025-04-28 08:28 | XMS_ITS | Clinical Summary ---
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
== END 2025-04-28 23:59 | disposition home or self-care (01) ==
LOC: RAD 08:26
PROVIDERS: PCP Nurse Practitioner Family; Visit Provider Nurse Practitioner Family
DX: N85.4 Malposition of uterus (principal); N83.02 Follicular cyst of left ovary; N92.6 Irregular menstruation, unspecified
CPT/HCPCS: 76830